=== PATIENT | female | born 1955 | race Caucasian/White ===

== ENCOUNTER 2023-09-14 07:18 | Day surgery (SDC) | payer MEDICARE, OTHER ==
[2023-09-14] MEDS: Polymyxin B/Trimethoprim 10 ML Bottle EYERT SCH (08:20)
[2023-09-14] MEDS: Brimonidine 0.2% Ophth Soln 5 ML Bottle EYERT SCH (08:31)
[2023-09-14] MEDS: Phenylephrine 2.5% Ophth Soln 2 ML Bot EYERT SCH (08:33)
[2023-09-14] MEDS: Tropicamide 1% Ophth Soln 3 ML Bottle EYERT SCH (08:35)
[2023-09-14] MEDS: Tetracaine HCl/PF 0.5% 4 ML Bottle EYEBOTH SCH (09:07)
[2023-09-14] MEDS: Lidocaine 1% PF 2 ML SDV INJECT SCH (09:22)
[2023-09-14] MEDS: Cefuroxime 10 MG/ML SYRINGE EYERT SCH (09:31)
[2023-09-14] MEDS: Pilocarpine 4% Ophth Soln 15 ML Bot EYERT SCH (09:31)
== END 2023-09-14 09:49 | disposition home or self-care (01) ==
LOC: JD.SDS 07:18
PROVIDERS: ATTEND Ophthalmology
DX: H25.813 Combined forms of age-related cataract, bilateral (principal); H11.153 Pinguecula, bilateral; H18.413 Arcus senilis, bilateral; H35.3131 Nonexudative age-related macular degeneration, bilateral, early dry stage; H02.831 Dermatochalasis of right upper eyelid; I10 Essential (primary) hypertension; H02.834 Dermatochalasis of left upper eyelid; J45.909 Unspecified asthma, uncomplicated; Z79.899 Other long term (current) drug therapy
CPT/HCPCS: A9270-GY; J0697; J3490